=== PATIENT | male | born 1975 | race Hispanic/Latino ===

== ENCOUNTER 2017-11-17 18:05 | Emergency (ER) | payer SELFPAY ==
[2017-11-17 18:39] VITALS: BP 149/87; PULSE 85; RESP 16; TEMP 98.4; O2SAT 98
[2017-11-17] MEDS ORDERED: Bacitracin 500 Units/gm Oint Foilpak UD ONE (20:15)
--- NOTE | 2017-11-17 20:40 | C.PDOC ---
History Of Present Illness 42 y/o male presents to the ED for evaluation of laceration s/p fall 2 days ago. Patient sustained a laceration to the forearm, states he is unsure of how he fell. The wound was cleaned with neosporin. Patient denies any head trauma, visual changes, weakness, numbness, tingling, or other injuries. Time Seen by Provider: 11/17/17 19:45 Chief Complaint (Nursing): Abnormal Skin Integrity History Per: Patient History/Exam Limitations: no limitations Onset/Duration Of Symptoms: Days Current Symptoms Are (Timing): Still Present Past Medical History Reviewed: Historical Data, Nursing Documentation, Vital Signs Vital Signs: Last Vital Signs Temp 98.4 F 11/17/17 18:35 Pulse 85 11/17/17 18:35 Resp 16 11/17/17 18:35 BP 149/87 11/17/17 18:35 Pulse Ox 98 11/18/17 12:44 Surgical History: No Surg Hx Family History: States: No Known Family Hx - Social History Hx Tobacco Use: Yes Hx Alcohol Use: Yes Hx Substance Use: No - Immunization History Hx Tetanus Toxoid Vaccination: Yes (5 YEARS AGO) Review Of Systems Except As Marked, All Systems Reviewed And Found Negative. Constitutional: Negative for: Fever, Chills Eyes: Negative for: Vision Change Skin: Positive for: Lesions (to forearm) Neurological: Negative for: Weakness, Numbness, Headache Physical Exam - Physical Exam Appears: Non-toxic, No Acute Distress Skin: Warm, Dry Head: Atraumatic, Normacephalic Eye(s): bilateral: Normal Inspection Oral Mucosa: Moist Neck: Normal ROM, Supple Chest: Symmetrical Cardiovascular: Rhythm Regular, No Murmur Respiratory: Normal Breath Sounds, No Accessory Muscle Use Extremity: No Deformity, No Swelling, Other (3cm laceration noted to the superior aspect of right forearm, with minimal erythema, no foreign body present. (+) full range of motion actively of arm, wrist, and digits) Pulses: Left Radial: Normal, Right Radial: Normal Neurological/Psych: Oriented x3, Normal Speech Gait: Steady ED Course And Treatment O2 Sat by Pulse Oximetry: 98 (RA) Pulse Ox Interpretation: Normal Progress Note: Wound has been open for over 24 hrs, so lac repair not indicated at this point to avoid infection. Wound was cleansed with saline and Bacitracin and sterile dressing applied to wound. Wound care instructions were given. Will d/c with prescription for cephalexin. Advised to follow up with primary doctor in 2-3 days for wound check Disposition Counseled Patient/Family Regarding: Diagnosis, Need For Followup - Disposition Referrals: [facility] [Outside] Disposition: HOME/ ROUTINE Disposition Time: 20:37 Condition: STABLE Additional Instructions: Please follow up with PMD in 2 days for wound check Take medications as directed Follow wound care instructions Return to ER if worse Prescriptions: Cephalexin [cephalexin] 500 mg PO QID #28 cap Instructions: Wound Care (DC) Forms: [employer] ([employer]) - Clinical Impression Clinical Impression: Laceration of forearm, right, Visit for wound check - PA / SHOW GIRL / Resident Statement MD/DO has reviewed & agrees with the documentation as recorded. - Scribe Statement The provider has reviewed the documentation as recorded by the Scribe (Alida Montiel) All medical record entries made by the Scribe were at my direction and personally dictated by me. I have reviewed the chart and agree that the record accurately reflects my personal performance of the history, physical exam, medical decision making, and the department course for this patient. I have also personally directed, reviewed, and agree with the discharge instructions and disposition.
== END 2017-11-17 20:45 | disposition home or self-care (01) ==
LOC: C.ER 18:05
DX: S51.811A Laceration without foreign body of right forearm, initial encounter (principal); W19.XXXA Unspecified fall, initial encounter; Y92.89 Other specified places as the place of occurrence of the external cause